=== PATIENT | male | born 1965 | race Caucasian/White ===

== ENCOUNTER 2018-08-29 01:12 | Inpatient (IN) | payer OTHER ==
[~2018-08-29] VITALS: Ht 180.3 cm; Wt 97.9 kg
[2018-08-29 02:27] LABS: Basophils # (auto) 0 uL; Basophils % (auto) 0.4 % (0.0-2.0); Eosinophils # (auto) 0.1 uL; Eosinophils % (auto) 1.1 % (0.0-7.0); Hematocrit 46.4 % (41.0-53.0); Hemoglobin 15.8 g/dL (13.5-17.5); Lymphocytes # (auto) 1.7 uL; Lymphocytes % (auto) 16.6 % (10.0-50.0); Mean Corpuscular Hemoglobin 30.3 pg (28.0-32.0); Monocytes # (auto) 0.6 uL; Monocytes % (auto) 5.8 % (0.0-12.0); Neutrophils # (auto) 7.6 uL; Neutrophils % (auto) 76.1 % (37.0-80.0); Platelet Count (auto) 207 10^3/uL (140-450); Red Blood Cells 5.21 10^6/uL (4.5-5.90); Red Cell Distribution Width 13.9 % (11.8-14.3)
[2018-08-29 02:42] LABS: INR 0.94 (0.9-1.15); Partial Thromboplastin Time 26.6 sec (23.78-33.04); Prothrombin Time 10.1 sec (9.27-12.13)
[2018-08-29 02:45] LABS: Alanine Aminotransferase 111 U/L (16-61); Albumin 4.2 g/dL (3.4-5.0); Amylase 56 U/L (25-115); Anion Gap 15 (5-15); Aspartate Aminotransferase 167 U/L (15-37); BUN/Creatinine Ratio 12.2; Blood Urea Nitrogen 14 mg/dL (7-18); Calcium 9.2 mg/dL (8.5-10.1); Carbon Dioxide 20 mmol/L (21-32); Chloride 105 mmol/L (98-107); GFR African American 86 mL/min; GFR Non-African American 71 mL/min; Glucose 275 mg/dL (74-106); Lipase 277 U/L (73-393); Magnesium 1.9 mg/dL (1.6-2.6); Potassium 3.9 mmol/L (3.5-5.1); Sodium 140 mmol/L (136-145)
[2018-08-29 02:52] LABS: Alkaline Phosphatase 61 U/L (45-117); Bilirubin, Total 0.6 mg/dL (0.2-1.0); Total Protein 7.9 g/dL (6.4-8.2)
[2018-08-29 03:16] LABS: Urine Bacteria FEW /hpf (None Seen); Urine Blood Negative /uL (Negative); Urine Specific Gravity 1.027 (1.001-1.035); Urine WBC 4 /hpf (0 - 3)
[2018-08-29] MEDS ORDERED: ONDANSETRON HCL 4 MG/2 ML VIAL IV ONE (06:45)
[2018-08-29] MEDS ORDERED: MORPHINE SULFATE 4 MG/ML SYR/VIAL IV ONE (06:45)
[2018-08-29] MEDS ORDERED: SODIUM CHLORIDE 0.9% 1,000 ML IV ONE (15:15)
[2018-08-29] MEDS ORDERED: PANTOPRAZOLE 40 MG/10 ML VIAL IV ONE (15:15)
[2018-08-29] MEDS ORDERED: DEXTROSE (50%) 50ML SYRG IV PRN (15:15)
[2018-08-29] MEDS ORDERED: LEVOFLOXACIN 500MG 100 ML IV ONE (15:15)
[2018-08-29] MEDS ORDERED: ONDANSETRON HCL 4 MG/2 ML VIAL IV PRN (15:15)
[2018-08-29] MEDS ORDERED: metroNIDAZOLE 500MG/100ML 100 ML IV SCH (15:30)
[2018-08-29] MEDS: metroNIDAZOLE 500MG/100ML 100 ML IV SCH (17:25)
[2018-08-29] MEDS: ACCU-CHEK COMFORT CURVE STRIP VI SCH (18:12)
[2018-08-29] MEDS: InsuLIN REG 1unit/0.01ml Soln (100units/ml) SC SCH (18:14)
--- NOTE | 2018-08-29 20:17 | NUR ---
[facility] admit from [facility] admitted to [facility] . Patient oriented to unit, room, bed, and unit policies regarding patient care and visiting hours. Patient weighed by bed scale and encouraged to call if they need something. All questions and concerns addressed, patient verbalized understanding.
[2018-08-29] MEDS: MORPHINE SULF INJ 2 MG/ML SYRINGE 1ML IV PRN (21:22)
[2018-08-29 21:41] VITALS: BP 122/72
--- NOTE | 2018-08-29 23:15 | NUR ---
IV removal Patient c/o pain in his IV site at R AC. Requesting re-insertion of IV. IV dc'd with clean sterile technique, catheter fully intact. Pressure dressing applied to site. Patient tolerated well.
--- NOTE | 2018-08-29 23:30 | NUR ---
IV insertion IV access obtained, via clean sterile technique by inserting 22 gauge catheter at R hand after 1 attempt. IV secured properly. No trauma to site. Patient tolerated well.
[2018-08-30] MEDS: ACCU-CHEK COMFORT CURVE STRIP VI SCH ×4 (00:09→18:07)
[2018-08-30] MEDS: InsuLIN REG 1unit/0.01ml Soln (100units/ml) SC SCH ×4 (00:09→18:00)
[2018-08-30] MEDS ORDERED: SIMV-8 PO (02:00)
[2018-08-30] MEDS ORDERED: METF-371 PO (02:00)
[2018-08-30] MEDS ORDERED: TERA1CAP33 PO (02:00)
[2018-08-30] MEDS ORDERED: LISI-646 PO (02:00)
[2018-08-30] MEDS ORDERED: SITA50TA PO (02:07)
[2018-08-30] MEDS: metroNIDAZOLE 500MG/100ML 100 ML IV SCH ×3 (02:11→18:00)
[2018-08-30] MEDS ORDERED: LEVEMIR SC (02:23)
[2018-08-30 05:04] VITALS: BP 116/63
[2018-08-30] MEDS: MORPHINE SULF INJ 2 MG/ML SYRINGE 1ML IV PRN ×3 (06:19→21:22)
[2018-08-30 07:31] LABS: Basophils # (auto) 0 uL; Basophils % (auto) 0.6 % (0.0-2.0); Eosinophils # (auto) 0.1 uL; Eosinophils % (auto) 2.2 % (0.0-7.0); Hematocrit 42.7 % (41.0-53.0); Hemoglobin 14.5 g/dL (13.5-17.5); Lymphocytes # (auto) 1.6 uL; Lymphocytes % (auto) 28.3 % (10.0-50.0); Mean Corpuscular Hemoglobin 30.4 pg (28.0-32.0); Mean Corpuscular Hgb Conc. 33.9 g/dL (32.0-36.0); Mean Corpuscular Volume 89.5 fL (80.0-100.0); Monocytes # (auto) 0.4 uL; Monocytes % (auto) 6.2 % (0.0-12.0); Neutrophils # (auto) 3.6 uL; Neutrophils % (auto) 62.7 % (37.0-80.0); Nucleated Red Blood Cells % 0.2 %; Platelet Count (auto) 185 10^3/uL (140-450); Red Blood Cells 4.77 10^6/uL (4.5-5.90); White Blood Cell 5.8 10^3/uL (4.4-10.8)
[2018-08-30 07:47] LABS: Albumin 3.5 g/dL (3.4-5.0); Calcium 8.5 mg/dL (8.5-10.1); Potassium 3.8 mmol/L (3.5-5.1)
[2018-08-30 07:51] LABS: BUN/Creatinine Ratio 10.5; Bilirubin, Total 0.9 mg/dL (0.2-1.0); Total Protein 6.4 g/dL (6.4-8.2)
--- NOTE | 2018-08-30 08:00 | NUR ---
Opening Shift Note Assumed care of patient, awake and alert. No S/S of distress/SOB or pain. Instructed on POC and to call for assist PRN, will continue to monitor for changes Q1hr and PRN.
[2018-08-30 08:10] VITALS: BP 110/66
[2018-08-30] MEDS ORDERED: PANTOPRAZOLE 40 MG/10 ML VIAL IV SCH (10:00)
[2018-08-30] MEDS: LEVOFLOXACIN 500MG 100 ML IV SCH (10:34)
[2018-08-30 12:07] VITALS: BP 120/76
--- NOTE | 2018-08-30 14:00 | NUR ---
OFF UNIT/SURGERY PATIENT LEFT UNIT FOR SURGERY (LAPAROSCOPIC CHOLECYSTECTOMY POSSIBLE OPEN). PATIENT WAS TAKEN IN BED. WENT DOWN WITH PATIENT.
[2018-08-30] MEDS ORDERED: ceFAZolin 1GM/50ML 50 ML IV ONE (14:14)
[2018-08-30] MEDS ORDERED: SUCCINYLCHOLINE CHLORIDE 20 MG/ML 10ML VIAL IV ONE (15:05)
[2018-08-30] MEDS ORDERED: LIDOCAINE 1% (LOCAL ANESTH.) PF 5ml SDV ONE (15:05)
[2018-08-30] MEDS ORDERED: MIDAZOLAM HCL 1MG/1ML-2 ML VIAL ONE (15:08)
[2018-08-30] MEDS ORDERED: ROCURONIUM 10MG/ML 10ML VIAL IV ONE (15:09)
[2018-08-30] MEDS ORDERED: ETOMIDATE (2MG/ML) 20ML VIAL IV ONE (15:10)
[2018-08-30] MEDS ORDERED: fentaNYL CITRATE 100 MCG/2 ML VL ONE (15:19)
[2018-08-30] MEDS ORDERED: ESMOLOL HCL 10 ML IV ONE (15:35)
[2018-08-30] MEDS ORDERED: KETOROLAC TROMETH 30 MG/ML 1ML VIAL ONE (15:35)
[2018-08-30] MEDS ORDERED: ONDANSETRON HCL 4 MG/2 ML VIAL IV ONE (15:45)
[2018-08-30] MEDS ORDERED: ACCU-CHEK COMFORT CURVE STRIP VI ONE (15:45)
[2018-08-30] MEDS ORDERED: METOCLOPRAMIDE HCL 5MG/ml INJ 2ml VIAL IV ONE (15:45)
[2018-08-30] MEDS ORDERED: NALOXONE HCL 0.4 MG/ML VIAL IV PRN (15:45)
[2018-08-30] MEDS ORDERED: HYDROmorphone HCL 2 MG/ML VL IV PRN ×2 (15:45→16:15)
[2018-08-30] MEDS ORDERED: hydrALAZINE HCL 20 MG/ML VL IV PRN (15:45)
[2018-08-30] MEDS ORDERED: NEOSTIGMINE 1 MG/ML INJ (10mg/10ML VIAL) ONE (16:10)
[2018-08-30] MEDS ORDERED: GLYCOPYRROLATE 0.2 MG/ML 1ML VIAL ONE (16:11)
[2018-08-30] MEDS ORDERED: ONDANSETRON HCL 4 MG/2 ML VIAL IV PRN (16:15)
[2018-08-30] MEDS: HYDROmorphone HCL 2 MG/ML VL IV PRN ×2 (16:44→17:05)
[2018-08-30] MEDS ORDERED: PROMETHAZINE HCL 25 MG/ML 1ML IV ONE (17:18)
[2018-08-30] MEDS ORDERED: PROMETHAZINE HCL 25 MG/ML 1ML ONE (17:20)
--- NOTE | 2018-08-30 17:35 | NUR ---
RETURNED TO ROOM PATIENT RETURNED TO UNIT. RECEIVED REPORT FROM POST-OP NURSE.
--- NOTE | 2018-08-30 17:45 | NUR ---
PT IN ROOM PATIENT APPEARS COMFORTABLE. RESTING WITH EYES CLOSED. NO S/SX OF PAIN OR DISCOMFORT. AT BEDSIDE.
--- NOTE | 2018-08-30 19:30 | NUR ---
Post Op : Received report from EVARISTO Betancourt and assumed care of patient. Patient is a S/P lap cholecystectomy today. Patient A and Ox4, abdominal binder and bilateral SCD's are in place. Incisional site dressing clean/dry/intact. Incentive Spirometer at bedside and instruction on proper use discussed with patient and verbalized understanding. Will continue to monitor.
[2018-08-30] MEDS: ceFAZolin 1GM/50ML 50 ML IV SCH (21:21)
[2018-08-30 22:00] VITALS: BP 97/66
[2018-08-31] MEDS: metroNIDAZOLE 500MG/100ML 100 ML IV SCH ×3 (01:37→15:37)
[2018-08-31] MEDS: MORPHINE SULF INJ 2 MG/ML SYRINGE 1ML IV PRN ×2 (01:38→06:23)
[2018-08-31] MEDS: ACCU-CHEK COMFORT CURVE STRIP VI SCH ×4 (01:39→17:54)
[2018-08-31 01:40] VITALS: BP 101/62
[2018-08-31] MEDS: InsuLIN REG 1unit/0.01ml Soln (100units/ml) SC SCH ×4 (01:40→17:54)
[2018-08-31 05:00] VITALS: BP 112/65
[2018-08-31] MEDS: ceFAZolin 1GM/50ML 50 ML IV SCH (05:24)
--- NOTE | 2018-08-31 07:00 | NUR ---
ERNESTO drain output is 440 ML
[2018-08-31 07:39] LABS: Albumin 3.3 g/dL (3.4-5.0); Calcium 8.3 mg/dL (8.5-10.1); Potassium 3.9 mmol/L (3.5-5.1)
[2018-08-31 07:41] LABS: BUN/Creatinine Ratio 17.6
[2018-08-31 07:44] LABS: Bilirubin, Total 0.8 mg/dL (0.2-1.0); Total Protein 6.1 g/dL (6.4-8.2)
--- NOTE | 2018-08-31 08:20 | NUR ---
ERNESTO DRAIN OUTPUT IS 15 CC
[2018-08-31] MEDS: PANTOPRAZOLE 40 MG/10 ML VIAL IV SCH (08:32)
[2018-08-31 08:39] VITALS: BP 99/58
[2018-08-31] MEDS: LEVOFLOXACIN 500MG 100 ML IV SCH (08:58)
[2018-08-31] MEDS: HYDROcodone-ACET 5/325MG TAB PO PRN ×2 (11:01→21:02)
--- NOTE | 2018-08-31 11:54 | NUR ---
PIECE [employer]KER FOR [facility] IS SHELBIE. [phone]. SHE WILL ASSIST WITH DISCHARGE NEEDS.
[2018-08-31 13:42] LABS: Basophils # (auto) 0.1 uL; Basophils % (auto) 0.7 % (0.0-2.0); Eosinophils # (auto) 0 uL; Eosinophils % (auto) 0.4 % (0.0-7.0); Hematocrit 37.6 % (41.0-53.0); Hemoglobin 12.5 g/dL (13.5-17.5); Lymphocytes % (auto) 12.7 % (10.0-50.0); Mean Corpuscular Hemoglobin 30.2 pg (28.0-32.0); Mean Corpuscular Hgb Conc. 33.3 g/dL (32.0-36.0); Mean Corpuscular Volume 90.7 fL (80.0-100.0); Monocytes # (auto) 0.6 uL; Monocytes % (auto) 7.5 % (0.0-12.0); Neutrophils # (auto) 6.3 uL; Neutrophils % (auto) 78.7 % (37.0-80.0); Platelet Count (auto) 186 10^3/uL (140-450); Red Blood Cells 4.14 10^6/uL (4.5-5.90); Red Cell Distribution Width 14.2 % (11.8-14.3)
--- NOTE | 2018-08-31 14:13 | NUR ---
ERNESTO DRAIN OUTPUT IS 25 CC
[2018-08-31] MEDS: HYDROmorphone HCL 2 MG/ML VL IV PRN (15:38)
[2018-08-31 16:40] VITALS: BP 120/72
--- NOTE | 2018-08-31 19:40 | NUR ---
Opening Shift Note Assumed care of patient, awake and alert. No S/S of distress/SOB or pain. Instructed on POC and to call for assist PRN. Bed in lowest locked position, call light within reach, side rails up x2. Will continue to monitor for changes Q1hr and PRN.
[2018-08-31 22:00] VITALS: BP 107/62
[2018-08-31] MEDS ORDERED: INSULIN LANTUS (GLARGINE) 1 /0.01ml (100units/ml) SC SCH (22:00)
[2018-09-01] MEDS: metroNIDAZOLE 500MG/100ML 100 ML IV SCH ×2 (02:11→10:34)
[2018-09-01] MEDS: HYDROmorphone HCL 2 MG/ML VL IV PRN (02:17)
[2018-09-01 05:00] VITALS: BP 135/77
[2018-09-01] MEDS: ACCU-CHEK COMFORT CURVE STRIP VI SCH ×3 (05:52→10:49)
[2018-09-01] MEDS: InsuLIN REG 1unit/0.01ml Soln (100units/ml) SC SCH ×3 (05:53→10:50)
[2018-09-01 07:05] LABS: Basophils # (auto) 0 uL; Basophils % (auto) 0.3 % (0.0-2.0); Eosinophils # (auto) 0.1 uL; Eosinophils % (auto) 1.3 % (0.0-7.0); Hemoglobin 11.7 g/dL (13.5-17.5); Lymphocytes % (auto) 15.3 % (10.0-50.0); Mean Corpuscular Hemoglobin 30.8 pg (28.0-32.0); Mean Corpuscular Hgb Conc. 34.4 g/dL (32.0-36.0); Mean Corpuscular Volume 89.4 fL (80.0-100.0); Monocytes # (auto) 0.6 uL; Monocytes % (auto) 8.7 % (0.0-12.0); Neutrophils # (auto) 5.1 uL; Neutrophils % (auto) 74.4 % (37.0-80.0); Platelet Count (auto) 172 10^3/uL (140-450); Red Cell Distribution Width 14.2 % (11.8-14.3); White Blood Cell 6.8 10^3/uL (4.4-10.8)
[2018-09-01 07:18] LABS: Albumin 3.3 g/dL (3.4-5.0); Calcium 8.1 mg/dL (8.5-10.1); Potassium 3.7 mmol/L (3.5-5.1)
[2018-09-01 07:19] LABS: BUN/Creatinine Ratio 9.9
[2018-09-01 07:22] LABS: Total Protein 6.3 g/dL (6.4-8.2)
--- NOTE | 2018-09-01 07:55 | NUR ---
Assumed care of pt, awake and alert, no s&s of distress/sob or pain noted, instructed on poc and to call for assist prn, will continue to monitor for changes q1h and prn. Addendum: 09/01/18 at 0811 by Geovani Gray RN correction: pt reports abd pain (see pain med administration data)
[2018-09-01] MEDS: HYDROcodone-ACET 5/325MG TAB PO PRN (08:07)
[2018-09-01 08:23] VITALS: BP 115/64
[2018-09-01] MEDS: PANTOPRAZOLE 40 MG/10 ML VIAL IV SCH (09:17)
[2018-09-01] MEDS: LEVOFLOXACIN 500MG 100 ML IV SCH (09:18)
--- NOTE | 2018-09-01 12:08 | NUR ---
Pt awake and alert, no s&s of distress/sob or pain noted, will continue to monitor for changes q1h and prn.
[2018-09-01 12:59] VITALS: BP 114/69
--- NOTE | 2018-09-01 15:37 | NUR ---
Pt awake and alert, no s&s of distress/sob or pain noted, will continue to monitor for changes q1h and prn.
== END 2018-09-01 15:59 | disposition home or self-care (01) | DRG 419 ==
LOC: ER 01:15 → OVERFLOW 15:18 → WEST WING 20:21
PROVIDERS: ADMIT Internal Medicine; ATTEND Internal Medicine
PROC: 0FT44ZZ Resection of Gallbladder, Percutaneous Endoscopic Approach (ICD-10-PCS; principal; 2018-08-30 14:57)
DX: K80.00 Calculus of gallbladder with acute cholecystitis without obstruction (principal); E11.9 Type 2 diabetes mellitus without complications; I10 Essential (primary) hypertension; E78.5 Hyperlipidemia, unspecified; K66.0 Peritoneal adhesions (postprocedural) (postinfection)
CPT/HCPCS: 36415; 71045; 74176; 78226; 80053; 81001; 82150; 82962; 83036; 83605; 83690; 83735; 84484; 85025; 85610; 85730; 87040; 93005; 96372; 96374; 96375; C9113; G0378; J0330; J0690; J1815; J1885; J1956; J2250; J2405; J3490

== ENCOUNTER 2018-09-05 13:01 | Emergency (ER) | payer OTHER ==
[~2018-09-05] VITALS: Ht 185.4 cm; Wt 98.0 kg
[~2018-09-05 13:01] MED LIST: LEVEMIR SC; LISI-646 PO; METF-371 PO; SIMV-8 PO; SITA50TA PO; TERA1CAP33 PO
[2018-09-05 14:07] LABS: Basophils # (auto) 0 uL; Basophils % (auto) 0.3 % (0.0-2.0); Eosinophils # (auto) 0.1 uL; Eosinophils % (auto) 1.5 % (0.0-7.0); Hematocrit 37.8 % (41.0-53.0); Hemoglobin 12.2 g/dL (13.5-17.5); Lymphocytes # (auto) 1.2 uL; Lymphocytes % (auto) 12.4 % (10.0-50.0); Mean Corpuscular Hemoglobin 29.3 pg (28.0-32.0); Mean Corpuscular Hgb Conc. 32.4 g/dL (32.0-36.0); Mean Corpuscular Volume 90.6 fL (80.0-100.0); Monocytes # (auto) 0.5 uL; Monocytes % (auto) 4.8 % (0.0-12.0); Platelet Count (auto) 303 10^3/uL (140-450); Red Blood Cells 4.17 10^6/uL (4.5-5.90); Red Cell Distribution Width 14.4 % (11.8-14.3); White Blood Cell 9.9 10^3/uL (4.4-10.8)
[2018-09-05 14:20] LABS: Albumin 3.4 g/dL (3.4-5.0); BUN/Creatinine Ratio 10.6; Potassium 4.2 mmol/L (3.5-5.1)
[2018-09-05 14:21] LABS: Urine Bacteria NONE SEEN /hpf (None Seen); Urine Blood Negative /uL (Negative); Urine WBC 7 /hpf (0 - 3)
[2018-09-05 14:23] LABS: Bilirubin, Total 0.7 mg/dL (0.2-1.0); Total Protein 7.6 g/dL (6.4-8.2)
[2018-09-05 15:39] VITALS: BP 132/70
== END 2018-09-05 15:43 | disposition home or self-care (01) ==
LOC: ER 13:04
DX: R06.02 Shortness of breath (principal); E11.9 Type 2 diabetes mellitus without complications; E78.5 Hyperlipidemia, unspecified; I10 Essential (primary) hypertension; Z90.49 Acquired absence of other specified parts of digestive tract
CPT/HCPCS: 36415; 80053; 81001; 85025; 93005